=== PATIENT | female | born 1985 | race Two or more races ===

== ENCOUNTER 2018-04-10 01:43 | Emergency (ER) | payer SELFPAY ==
[~2018-04-10] VITALS: Ht 160 cm; Wt 62.6 kg
[2018-04-10 01:47] VITALS: BP 121/67
== END 2018-04-10 03:44 | disposition left against medical advice (07) ==
LOC: ER 01:46
DX: M79.644 Pain in right finger(s) (principal); Z53.21 Procedure and treatment not carried out due to patient leaving prior to being seen by health care provider